=== PATIENT | female | born 1990 | race African-American/Black ===

== ENCOUNTER 2017-06-29 09:09 | Emergency (ER) | payer OTHER ==
[~2017-06-29] VITALS: Ht 167.6 cm; Wt 72.6 kg
[~2017-06-29 09:09] MED LIST: DELTASONE20 MG PO; FLEXERIL PO; IBUPROFEN 600600 M1 PO; MACROBID 100 M100 M1 PO; MOBIC15 MG PO; NORCO 5-325 TA1 EACH PO; PYRIDIUM200 MG PO; ZOFRAN 4 MG ORAL4 MG PO
[2017-06-29 09:10] VITALS: BP 124/86
[2017-06-29] MEDS ORDERED: ZOFRAN ODT4 M1 PO (09:51)
== END 2017-06-29 10:15 | disposition home or self-care (01) ==
LOC: ER 09:09
DX: B34.9 Viral infection, unspecified (principal); N64.4 Mastodynia; F10.99 Alcohol use, unspecified with unspecified alcohol-induced disorder

== ENCOUNTER 2017-09-05 10:25 | Inpatient (IN) | payer OTHER ==
[~2017-09-05] VITALS: Ht 167.6 cm; Wt 76.7 kg
--- NOTE | ~2017-09-05 | O ---
[facility] [place] [address] OPERATIVE REPORT Name: GENA PRICE Room #: 441-P ADM IN M.R.#: [id number] Admission: 09/05/17 Attend Phys: Nahid Davis MD Discharge: Date of : 88 Report #: [id number] THIS REPORT FOR: //name// CC: Nahid Davis [facility] physician/PCP DATE OF SERVICE: 09/06/2017 SURGEON: Justino Burch MD PERSONAL LINES AGENT: None. PREOPERATIVE DIAGNOSIS: Left breast wound with complex fluid collections and mastitis. POSTOPERATIVE DIAGNOSIS: Left breast wound with complex fluid collections and mastitis. PROCEDURES: 1. Excisional debridement of left breast wound, including skin and subcutaneous tissue (starting wound size 2 cm wide x 1 cm long; ending wound size 4 cm wide x 2 cm long). 2. Drainage of complex left breast fluid collections with multiple loculations and copious irrigation. ANESTHESIA: General endotracheal anesthesia and local anesthetic. ESTIMATED BLOOD LOSS: 150 mL SPECIMEN: Left breast skin and subcutaneous tissue. COMPLICATIONS: None appreciated. INDICATIONS FOR PROCEDURE: This is a 27-year-old female patient who has had difficulty with left breast pain, starting at the end of 05/2017. This was initially felt to be cyclical; however, she developed worsened pain with swelling and not responsive to antibiotics. She underwent imaging studies and was initially felt to have mastitis; however, additional studies showed a fluid collection. The patient underwent incision and drainage in a surgeon's office x 2, both of which were unsuccessful. She then presented to [facility] and has been admitted for IV antibiotics and further treatment. Her left breast ultrasound showed 2 complex fluid collections in the left breast. She has a wound overlying this. She presents today for excisional debridement of the wound as well as drainage of the complex fluid collections. OPERATIVE FINDINGS: The patient had multiloculated fluid cavities that [address] [address] OPERATIVE REPORT Name: GENA PRICE Room #: 441-P [facility] IN .R.#: [id number] Admission: 09/05/17 Attend Phys: Nahid Davis MD Discharge: Date of : 89 Report #: [id number] ultimately spanned 7-8 cm long x 5 cm wide x 3-4 cm deep. The fluid within the tissue was non-malodorous and questionably either sterile abscess/pus versus milk. Cultures for aerobes, anaerobes, fungus and acid-fast bacilli were taken as well as tissue to be sent for pathology to rule out idiopathic granulomatous mastitis or malignancy. At the conclusion of the operation, the sponge, needle, and instrument counts were correct. No other significant pathology was identified. DESCRIPTION OF PROCEDURE IN DETAIL: After the risks, benefits, and expectations of the operation were discussed in detail with the patient, informed consent was obtained. The patient was identified in the preoperative holding area. She has been receiving scheduled IV antibiotics including Rocephin and vancomycin. She was then taken to the operating room and she was placed in the supine position. SCDs were placed on the patient's bilateral lower extremities and pneumatic compression was initiated. The patient was then given IV sedation. She was intubated without incident. Her left breast was prepped and draped in the standard sterile fashion with Betadine. A time-out was performed to correctly identify the patient and procedure. Local anesthetic was infiltrated into the skin and subcutaneous tissue around the wound. A sharp #15 blade scalpel was used to make an incision through the skin and subcutaneous tissue to remove this, to be sent for pathology. Bleeding points were made hemostatic with electrocautery and hemostatic sutures of 2-0 Vicryl. Dissection continued deeper into the breast where fluid collections were encountered and were broken up with finger fracture technique. Cultures were taken from the cavity located at the 1 o'clock position as well as from the deeper cavity. Cultures for aerobes, anaerobes, fungus and acid-fast bacilli were ultimately taken. Deeper subcutaneous tissue was also taken as specimen. Bleeding points were made hemostatic with electrocautery. After ensuring hemostasis, the wound was copiously irrigated with 2500 mL of normal saline using the power tube cleaner. The wound was then packed with 1:1 Betadine to normal saline on Kerlix gauze. Sterile dressings were applied. The patient tolerated the procedure well. She was awakened, extubated, and taken to recovery room in stable condition with no apparent intraoperative complications. <ELECTRONICALLY SIGNED> By: Justino Burch MD, FACS 09/07/17 0655 [id number] [id number] Justino Burch MD, FACS /nt
--- NOTE | ~2017-09-05 | HC ---
[facility] [place] [address] CONSULTATION Name: GENA PRICE Room #: 441-P ADM IN M.R.#: [id number] Admission: 09/05/17 Attend Phys: Nahid Davis MD Discharge: Date of : 89 Report #: [id number] THIS REPORT FOR: //name// CC: Nahid Davis [facility] physician/PCP Ora De La Cruz DATE OF SERVICE: 09/05/2017 ATTENDING PHYSICIAN: Dr. Davis. CONSULTING PHYSICIAN: Dr. Burch. REASON FOR CONSULTATION: Left breast mastitis/abscess. HISTORY OF PRESENT ILLNESS: This is a 27-year-old otherwise healthy female patient, who has had difficulty with left breast pains beginning late May 2017. The pain was felt to be cyclical initially. She had increased swelling after Thanksgiving and saw her religious education teacher, Dr. Ora De La Cruz. She was sent for an ultrasound and at that time was diagnosed with mastitis as no fluid collections/abscesses were identified. The patient had continued pain in mid July after having finished her antibiotics. She was sent to diagnostic imaging once again and from there was referred to Dr. Cheo Cadena at [facility]. When seen in his office, the patient underwent an office drainage procedure and was placed on 2 more weeks of antibiotics. She saw him once again in this past Thursday and underwent additional opening of the incision and was placed on an additional week of antibiotics. Since then, she has had worsening pain, fever, chills, and nausea. She has come to the [facility] Emergency Room for further evaluation and treatment. She underwent a left breast ultrasound showing mastitis with 2 ill-defined complex fluid collections in the upper outer aspect of left breast, the larger of which was deep to the incision and second of which was located at the 1 o'clock position in relation to the left nipple. The patient was offered to be transferred/referred to [facility] under the care of Dr. Cadena; however, she declined this and wished to remain at [facility]. PAST MEDICAL HISTORY: Denies. PAST SURGICAL HISTORY: Incision and drainage procedures in the office x 2. MEDICATIONS: Zofran and Bactrim DS. ALLERGIES: No known drug allergies. FAMILY HISTORY: Negative for breast cancer. Reviewed and noncontributory to this hospitalization. [facility] [address] [place] [address] CONSULTATION Name: GENA PRICE Room #: 441-P [facility] IN M.R.#: [id number] Admission: 09/05/17 Attend Phys: Nahid Davis MD Discharge: Date of : 89 Report #: [id number] SOCIAL HISTORY: The patient denies use of tobacco or illicit drugs. 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 She is and accompanied by her . REVIEW OF SYSTEMS: As per history of present illness. In addition, GENERAL: The patient reports fevers and chills. Denies unintentional weight loss. HEENT: Denies changes in taste, vision, hearing, or smell. RESPIRATORY: Denies shortness of breath, COPD or asthma. CARDIOVASCULAR: Denies chest pain or palpitations. GASTROINTESTINAL: As per history of present illness with nausea, but denies abdominal pain. GENITOURINARY: Denies dysuria, urgency, increased urinary frequency or hematuria. MUSCULOSKELETAL: Denies myalgia, arthralgia or arthritis. NEUROLOGIC: Denies headaches, numbness or tingling. PSYCHIATRIC: Denies depression, anxiety or suicidal ideations. SKIN AND INTEGUMENTARY: Denies new skin lesions, rashes, or moles. ENDOCRINE: Denies polydipsia, polyuria, heat or cold intolerance. HEMATOLOGICAL: Denies easy bleeding, bruising or anemia. All other review of systems is negative. PHYSICAL EXAMINATION: VITAL SIGNS: Temperature 100.0, blood pressure 112/71, pulse 105, respirations 20. Height 5 feet 6 inches. Weight 169 pounds. GENERAL: This is a healthy-appearing 27-year-old female patient, in no acute distress. HEENT: Atraumatic, normocephalic with moist mucosal membranes. Oropharynx is clear. She has no scleral icterus. NECK: Supple. No appreciable lymphadenopathy. Trachea is midline. CHEST: Clear bilaterally. No crackles or wheezes. CARDIOVASCULAR: Regular rate and rhythm/mild sinus tachycardia. S1, S2. BREAST: Reveals a firm/indurated left breast with erythema mostly in the upper outer quadrant of the left breast. She is exquisitely tender to palpation. A transverse radial incision is present lateral to the left nipple with seropurulent drainage. She has no appreciable lymphadenopathy. There is no nipple discharge. The right breast is normal. ABDOMEN: Soft, nontender, nondistended. GENITOURINARY: Normal external female genitalia. EXTREMITIES: No clubbing, cyanosis or edema. NEUROLOGIC: Cranial nerves 2-12 grossly intact. PSYCHIATRIC: Normal mood and affect although the patient is tearful. SKIN AND INTEGUMENTARY: See above. [address] [address] CONSULTATION Name: GEAN PRICE Room #: 441-P ADM IN M.R.#: [id number] Admission: 09/05/17 Attend Phys: Nahid Davis MD Discharge: Date of : 89 Report #: [id number] LABORATORY DATA: CBC shows a white blood cell count of 20.7, hemoglobin 12.0, hematocrit 34.4 and platelets 233 with 87% segmented neutrophils. Comprehensive metabolic profile shows a sodium of 136, potassium 3.4, chloride 99, CO2 24, BUN 6, creatinine 0.8 and glucose 102. AST and ALT were elevated at 170 and 354 respectively with an elevated alkaline phosphatase of 219. Total bilirubin was normal at 0.6. Lactate was normal at 0.6. RADIOLOGIC STUDIES: Left breast ultrasound, findings as noted above. Diffuse subcutaneous edema was present in the upper outer aspect of the left breast, consistent with mastitis. Both fluid collections were poorly defined and felt to be complex. IMPRESSION AND PLAN: This is a 27-year-old otherwise healthy female patient with mastitis with complex fluid collections. We discussed the pathophysiology and natural history of this. She has not been nursing. She would benefit from incision and drainage with debridement as a wound is present. This would be excisionally debrided. We discussed the risks, benefits and expectations of the operation in detail. The patient expressed understanding and wishes to proceed. She will be taken to operating room at the next earliest availability. In the meantime, would continue IV antibiotics and consider an infectious disease consult for further antibiotic recommendations/management. Wound care will also be consulted after the procedure to assist with dressing changes. I sincerely appreciate the opportunity to participate in the care of this patient and will leave further recommendations and orders in the electronic medical record as appropriate. <ELECTRONICALLY SIGNED> By: Justino Burch MD, FACS 09/06/17 [phone] Justino Burch MD, FACS /nt
--- NOTE | ~2017-09-05 | H ---
[facility] [place] [address] HISTORY AND PHYSICAL Name: GENA PRICE Room #: 441-P ADM IN M.R.#: [id number] Admission: 09/05/17 Attend Phys: Nahid Davis MD Discharge: Date of : 89 Report #: [id number] THIS REPORT FOR: //name// CC: Nahid Davis [facility] physician/PCP DATE OF SERVICE: 09/05/2017 REASON FOR THE PRESENTATION: Left breast pain and fever. HISTORY OF PRESENT ILLNESS: This is a 27-year-old who presented complaining of left-sided breast pain that had been going on for the last month or so. She initially had this drained by a surgeon at [facility] back on 08/14; however, the incision was small and this has to be redone again on 09/02. She tells me that she had received numerous antibiotics including Bactrim, Augmentin. She had some images done at the diagnostic center, but those are not available for me. She reported fever high grade, chills. This was also associated with generalized bodyaches. She denies any previous problems like abscesses. No previous mastitis. She is not nursing. She is not diabetic or hypertensive. She is not immune compromised. REVIEW OF SYSTEMS: GENERAL: Significant for fever, chills, weakness. CARDIOVASCULAR: Significant for some shortness of breath. PULMONARY: No cough or hemoptysis. GASTROINTESTINAL: Nausea and decreased p.o. intake. GENITOURINARY: No frequency, no urgency. SKIN: As per the history of present illness. MEDICATIONS: Bactrim. ALLERGIES: None. SOCIAL HISTORY: She denies drug or alcohol abuse. 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 FAMILY HISTORY: Significant for diabetes mellitus. Her dad is diabetic. Her mom has hypertension. PHYSICAL EXAMINATION: GENERAL: She is alert, oriented. She seems to be distressed. VITAL SIGNS: Blood pressure was 115/74, temperature 38.2, pulse rate 104. HEAD AND NECK: No jugular venous distention, no bruit, no thyromegaly. CHEST: Clear to auscultation bilaterally. CARDIOVASCULAR: Regular with no rub detected. [facility] [address] [address] HISTORY AND PHYSICAL Name: GENA PRICE Room #: 441-P [facility] IN [facility]#: [id number] Admission: 09/05/17 Attend Phys: Nahid Davis MD Discharge: Date of : 89 Report #: [id number] ABDOMEN: Soft, nontender with no hepatosplenomegaly. LOWER EXTREMITIES: No edema with intact peripheral pulses. BREAST: Revealed fullness in the whole left breast area. There is an incision in the left inferolateral aspect of the nipple. The whole breast is inflamed, indurated, warmed. LABORATORY DATA: Laboratory values reviewed. She is a little hypokalemia with a potassium 3.4. AST, ALT, alkaline phosphatase are elevated. White blood cell count 20.7. Urine not received yet. Blood cultures are sent and pending. Wound swab was also sent. ASSESSMENT, IMPRESSION AND PLAN: 1. Mastitis with what seems to be a fluid collection. 2. Sepsis syndrome with high white blood cell count, elevated temperature. 3. Hypokalemia. 4. Elevated liver enzymes of unknown source. 5. Discussed with the patient and her . They do not want to go back to [facility]. 6. Admission. 7. IV fluid. 8. Cultures. 9. Start appropriate antibiotic including vancomycin and Rocephin. 10. Surgical consultation. 11. Obtain CPK given the extent of the breast tissue inflammation. 12. Hold Bactrim for now given the elevation of the liver enzymes and repeat liver enzymes in the morning. If needed, I will proceed with ultrasound, Hepatology consultation. <ELECTRONICALLY SIGNED> By: Nahid Davis MD 09/07/17 0850 1220 Nahid Davis MD /nt
--- NOTE | ~2017-09-05 | HC ---
[facility] [place] [address] CONSULTATION Name: GENA PRICE Room #: 441-P ADM IN M.R.#: [id number] Admission: 09/05/17 Attend Phys: Nahid Davis MD Discharge: Date of : 89 Report #: [id number] THIS REPORT FOR: //name// CC: Nahid Davis [facility] physician/PCP DATE OF SERVICE: 09/06/2017 WOUND CARE CONSULTATION NOTE REASON FOR CONSULTATION: Status post incision and drainage of multi-loculated left breast abscess by Dr. Burch, wound care for postoperative care of surgical wound. CONSULTING PHYSICIAN: Moise Narvaez MD HISTORY: The patient is a healthy, non-diabetic, 27-year-old woman who has had children nurse, but has not been lactating over 2 years. The patient developed some pain, tenderness and swelling of her left breast sometime in late May around . This has not resolved and she was seen by Dr. Cheo Cadena at [facility] who is a breast surgeon. The patient saw Dr. Ora De La Cruz, also had ultrasound done with finding of mastitis without fluid collection. The patient was begun on antibiotics. After antibiotics failed to take care of the problem, patient saw Dr. Cheo Cadena who performed an office incision and drainage on approximately 08/14 and then again on Thursday 4 days ago. Despite several course of antibiotics and office incision and drainage x 2, patient continued to have pain, tenderness and swelling of the left breast, presented herself to the Emergency Room at [facility] where her temperature was 100 and white blood count was 20.7. The patient was seen in consultation by Dr. Justino Burch and taken to the operating room today, 09/06, where she had wide incision and drainage of loculated left breast fluid collection with some excisional debridement. Wound was widely opened, all loculations were broken down and the wound was drained and packed. The patient continues on IV antibiotics. We will not do dressing change today. PAST MEDICAL HISTORY: The patient is non-diabetic. She has no medical illnesses. PAST SURGICAL HISTORY: No major surgeries. CURRENT MEDICATIONS: Zofran and Bactrim. ALLERGIES: No known drug allergies. FAMILY HISTORY: Negative for breast cancer. [address] [address] CONSULTATION Name: GENA PRICE Room #: 441-P [facility] IN M.R.#: [id number] Admission: 09/05/17 Attend Phys: Nahid Davis MD Discharge: Date of : 89 Report #: [id number] PHYSICAL EXAMINATION: GENERAL: Shows a well-appearing 27-year-old woman who is alert and conversant. VITAL SIGNS: She is afebrile. HEENT: Mucous membranes are moist. NECK: Supple. LUNGS: Respirations unlabored. ABDOMEN: Soft. EXTREMITIES: Normal. BREASTS: Examination of the left breast shows a large clean dressing on lateral aspect of the mid left breast. Dressing is clean and not saturated. Dressing is not removed today. LABORATORIES: White blood count yesterday was 20.7, today 18.1. IMPRESSION: Chronic left breast mastitis with chronic mastitis and loculated fluid collections, requiring operative incision and drainage. This is postoperative day #0. PLAN: We will continue IV antibiotics. Wound care team will change wound packing tomorrow and change the packing accordingly, perhaps with quarter strength Dakin's. The patient may follow up in [facility] with Dr. Marcin garay. Final OR culture is pending. The patient will be discharged home on appropriate antibiotics. <ELECTRONICALLY SIGNED> By: Moise Narvaez MD 09/13/17 0916 1403 [id number] Moise Narvaez MD /nt
--- NOTE | ~2017-09-05 | HC ---
[facility] [place] [address] CONSULTATION Name: GENA PRICE Room #: 441-P ADM IN M.R.#: [id number] Admission: 09/05/17 Attend Phys: Nahid Davis MD Discharge: Date of : 88 Report #: [id number] THIS REPORT FOR: //name// CC: Nahid Davis [facility] physician/PCP DATE OF SERVICE: 09/05/2017 CONSULTATION: Infectious diseases. HISTORY OF PRESENT ILLNESS: The patient is a 27-year-old female who comes to the hospital because of pain in her left breast. The patient says she first noted discomfort in the left breast around the end of May last year. This was a dull ache on the lateral aspect of the left breast. It was not associated with . It was not associated with any trauma. The discomfort became worse and then around , the pain was quite significant. She came to medical attention, the Thursday after and was given antibiotics with Bactrim. She was not sure if she got a lot of benefit, so this was then repeated with an anti-inflammatory drug. The patient had an abscess diagnosed and was drained by Dr. Cadena at [facility] on 08/14/2017. The patient said that she had a small incision with a 1/4-inch packing gauze. She returned to Dr. Cadena 2 weeks later on 09/02/2017 complaining of more pain. She had been on Augmentin. Dr. Cadena extended the incision in the office procedure room using just a local anesthetic and then packed a 4 x 4 gauze into the wound. The patient found this procedure quite excruciating and decided that she did not want to return to that physician. The packing came out. The patient was having more pain in her breast and so presents on 09/05/2017 to the Emergency Room at [facility] 3 days after her last the incision and drainage procedure. PAST MEDICAL HISTORY: Otherwise unremarkable. The patient is generally in excellent health without any medical problems. She does not take any medication on a regular basis up until the recent antibiotic treatments. She denies any systemic illness. No problems with heart, lungs, kidneys and bowels. FAMILY HISTORY: Noncontributory. SOCIAL HISTORY: The patient is . She has a 4-year-old and a 2-year-old at home. She breastfed the last child until he was 8 months old. 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 She does not use tobacco, alcohol or drugs. She denies any HIV risk factors. REVIEW OF SYSTEMS: The patient is complaining of some fevers and chills. She denies any head or neck complaints. She has severe pain in the breast. She has no discharge nor milk let down. She has no symptoms in the right breast. She denies any angina or syncope, but the pain in the breast radiates into her left [address] [address] CONSULTATION Name: GENA PRICE Room #: 441-P ADM IN M.R.#: [id number] Admission: 09/05/17 Attend Phys: Nahid Davis MD Discharge: Date of : 88 Report #: [id number] ribs. She denies any nausea, vomiting, diarrhea, constipation. She denies any urinary or genital complaints. She has some discomfort in the left shoulder, but no other pain in the extremities. PHYSICAL EXAMINATION: GENERAL: The patient appears her stated age, uncomfortable, but not in distress. She notes that the Dilaudid is very helpful for the pain, but when it wears out, the patient again becomes excruciating. I request that I told the nurse that it is about time for her next dose of narcotic. VITAL SIGNS: Show maximum temperature 100.7. ENT: Negative. The patient is alert and appropriate. There is no adenopathy in the axilla nor supraclavicular area. HEART, LUNGS, AND ABDOMEN: Unremarkable. The left breast is clearly swollen compared to the right breast. There is a very prominent vein going from about the 11 o'clock position going for about 3 cm. It is visible on the left breast. There are no visible veins on the right. There is an open wound at the 4 o'clock position relative to the nipple about 5 cm from the nipple. This has a length of about 1 cm, a width of about 3 cm, depth of 0.2 cm. The patient says the packing came out a day or so ago. The abdomen is unremarkable. LABORATORY DATA: White count is 20.7, hemoglobin 12, hematocrit 34%. Electrolytes, BUN and creatinine are normal. Liver function tests are elevated with AST 170, ALT at 354 and alkaline phosphatase of 219. Her lactate is normal. The ultrasound of the left breast shows diffuse edema consistent with mastitis. There were 2 phlegmonous areas which were not characterized as true abscess, one was deep to the incision that were there at the 4 o'clock position and there is another area about at the 1 o'clock position. They looked like local inflammations without yet liquefying. In summary, the patient with a breast cellulitis and abscess, which has not improved in spite of the 3 weeks of oral antibiotics and 2 attempts at incision and drainage. Breast abscess in a non-lactating female is well described. Lesions which are far from the nipple act much like normal skin abscesses with staph and strep. Nipple involvement increases the chance of corynebacterium and gram-negative organisms. There are also some conditions, which look like infection, but are not; what comes to mind is idiopathic granulomatous mastitis, which can look very inflamed like an infection, but has a different appearance on histopathology and is generally culture negative. At this time, I discussed with Dr. Burch. I will continue the antibiotics with vancomycin plus Rocephin. We can do a nasal swab for methicillin-resistant Staphylococcus aureus. Dr. Burch plans on taking the patient to the operating room on 09/06/2017 to drain the inflammatory areas. I discussed with him that we would want to obtain cultures for routine as well as [address] [address] CONSULTATION Name: GENA PRICE Room #: 441-P [facility] IN M.R.#: [id number] Admission: 09/05/17 Attend Phys: Nahid Davis MD Discharge: Date of : 88 Report #: [id number] TB and fungus organisms, as well as obtain a tissue for histology looking for idiopathic granulomatous mastitis. I appreciate the opportunity to offer input in the care of this pleasant patient. I will be happy to follow her through the weekend until Dr. Prescott returns on Thursday. Thank you for this consultation. <ELECTRONICALLY SIGNED> By: Cheo Mei MD 09/07/17 0032 0806 1230 Cheo Mei MD /ammon
--- NOTE | ~2017-09-05 | O ---
[facility] [place] [address] [place] [address] OPERATIVE REPORT Name: GENA PRICE Room #: 441-P ADM IN M.R.#: [id number] Admission: 09/05/17 Attend Phys: Nahid Davis MD Discharge: Date of : 88 Report #: [id number] THIS REPORT FOR: //name// CC: Nahid Davis [facility] physician/PCP Ora De La Cruz MD DATE OF SERVICE: 09/11/2017 SURGEON: Justino Burch MD [employer] PA[employer] MIXER OPERATOR: None. PREOPERATIVE DIAGNOSES: 1. Left breast wound with mastitis and persistent leukocytosis. 2. Status post recent excisional debridement on 09/06/2017, after bedside incision and drainage procedures times 2. POSTOPERATIVE DIAGNOSES: 1. Left breast wound with mastitis and persistent leukocytosis, now with purulence. 2. Status post recent excisional debridement on 09/06/2017, after bedside incision and drainage procedures times 2. PROCEDURES: 1. Mechanical debridement of left breast wound. 2. Drainage of complex left breast fluid collections with multiple loculations in the tail of the breast. ANESTHESIA: General endotracheal anesthesia and local anesthetic. ESTIMATED BLOOD LOSS: 10 mL. SPECIMEN: None. COMPLICATIONS: None appreciated. INDICATIONS FOR PROCEDURE: This is a 27-year-old female patient who presented to [facility] with left breast pain, which started in late May 2017. Her symptoms were felt to be cyclical as she developed worsened pain at the end of July. She underwent imaging studies initially showing mastitis and she did not respond to antibiotics. Additional studies showed a fluid collection. The patient then underwent incision and drainage at the bedside twice, both of which were unsuccessful. She presented to [facility] and was admitted for IV antibiotics. Her left breast ultrasound revealed 2 complex fluid collections in the left breast with her wound overlying [facility] [address] [place] [address] OPERATIVE REPORT Name: GENA PRICE Room #: 441-P [facility] IN M.R.#: [id number] Admission: 09/05/17 Attend Phys: Nahid Davis MD Discharge: Date of : 88 Report #: [id number] this. She underwent excisional debridement with drainage of the complex fluid collections on 09/06/2017. Multiloculated fluid collections were identified and cultures as well as tissue were taken. Cultures have come back negative thus far. Pathology showed no malignancy. The patient has been undergoing dressing changes and receiving IV antibiotics; however, she has had a persistently elevated white blood cell count with firmness in the tail of the left breast. She underwent an ultrasound on 09/10/2017, showing a worsening inflammatory phlegmon versus enlarging abscess in the upper outer left breast. She presents today for repeat wound debridement. OPERATIVE FINDINGS: The area of purulence had been opened on 09/07/2017, and packing was not present within this. Purulent fluid was sent for cultures. There was good granulation tissue throughout the wound otherwise with minimal fibrinous exudate. The abscess did not appear to have spread, but was in an area that had already been opened. The dressing changes after the initial OR dressing was placed did not extend into the cavity. The cavity measured 8 cm long by 7 cm wide by 6-7 cm deep. The skin opening was 5 cm wide x 2 cm long. DESCRIPTION OF PROCEDURE IN DETAIL: After risks, benefits, and expectations of the operation were discussed in detail with the patient, informed consent was obtained. The patient was identified in the preoperative holding area. She has been receiving scheduled IV antibiotics. She was taken to the operating room and she was placed in the supine position. SCDs were placed on the patient's bilateral lower extremities and pneumatic compression was initiated. The patient was then given IV sedation, she was intubated without incident. Her left breast was prepped and draped in the standard sterile fashion. A time-out was performed to identify the correct patient and procedure. The packing had been removed prior to prepping the patient's breast. Blunt dissection was used to enter the abscess cavity where purulence was identified. Cultures were taken to be sent for aerobes, anaerobes, fungus, and acid-fast bacilli. The wound was then copiously irrigated and mechanical debridement with a lap tape was performed. There was a gentle ooze of blood from the tissue with no overt bleeding/arterial or venous bleeding. The wound was packed with 1:1 Betadine to normal saline on a Kerlix gauze. Care was taken to ensure that the packing extended up into the cavity, which extended 8 cm long x 6-7 cm deep x 7 cm wide. The skin opening was approximately 5 cm wide. Sterile dressings were applied. The patient tolerated the procedure well. She was awakened, extubated, and taken to recovery room in stable condition with no apparent intraoperative complications. <ELECTRONICALLY SIGNED> By: Justino Burch MD, FACS 09/11/17 2214 0929 1006 Justino Burch MD, FACS /nt
--- NOTE | ~2017-09-05 | S ---
[facility] [place] [address] [place] [address] SURGICAL PATH RPT PROCEDURE Name: ADA WALKER Room #: 441-P ADM IN M.R.#: [id number] Admission: 09/05/17 Date of : 88 Discharge: Report #: [id number] Path Case #: [id number] PATHOLOGY REPORT COLLECTION DATE: 09/06/2017 RECEIVED DATE: 09/07/2017 SUBMITTING PHYS: Dr. Justino Burch OTHER PHYS: Dr. Nahid Gong-Abs SPECIMEN(S) RECEIVED: A.Left breast skin B.Subcutaneous tissue-left breast * * * * * * * * * * * * FINAL DIAGNOSIS: A. Skin, left breast skin, biopsy: - Marked acute inflammation, compatible with an abscess identified in deep subcutaneous tissue. - Overlying squamous epithelium showing reactive changes. - Negative for dysplasia or malignancy. - No breast tissue present. B. Breast, left breast subcutaneous tissue, debridement: - Fragments with marked acute inflammation consistent with an abscess. - Fat necrosis identified within subcutaneous adipose tissue. - Negative for malignancy. - Rare breast ducts with moderate chronic inflammation; negative for hyperplasia or malignancy. (IUV:mml; 09/08/2017) PATHOLOGIST: Tana Kuo M.D. REPORT ELECTRONICALLY SIGNED BY: Tana Kuo M.D. DATE/TIME: 09/08/2017 17:20 * * * * * * * * * * * * GROSS PATHOLOGY: A. Received in formalin labeled "Ada Walker, skin and additionally labeled left breast skin on requisition slip" and consists of a segment of mcdonough skin measuring 3.2 cm in length, 0.6 cm wide, 0.3 cm thick. No epidermal lesions are identified. The margin is inked black. Sign Writer Letterer Or Painter sections are submitted as A1. B. Received in formalin labeled "Ada Walker, subcutaneous tissue and additionally labeled "subcutaneous tissue per requisition slip" and consists of 2 resilient, firm, yellow orange, and hemorrhagic fragments of fibroadipose tissue measuring 1.2 x 1.0 x 0.7 cm and 2.2 x 1.1 x 1.0 cm. Sectioning each reveals variegated red, jimenez, and yellow cut surfaces. Sign Writer Letterer Or Painter sections are [place] [address] [place] [address] SURGICAL PATH RPT PROCEDURE Name: ADA WALKER Room #: [facility]-P ADM IN M.R.#: [id number] Admission: 09/05/17 Date of : 88 Discharge: Report #: [id number] Path Case #: [id number] submitted as B1. (ALEXANDRA; 09/07/2017) CLINICAL HISTORY: Infected left breast INITIAL CPT CODE(S): A; 25516 B; 88017 Professional services performed by [facility] at [facility] [address] [place] [address] Technical services performed by [facility] at [address] [place] [address]., [address], [place] [address]. [facility] [address] [address] PHONE: [phone] DIRECTOR: Jerman Quinonez M.D. * * * END OF REPORT * * *
[~2017-09-05 10:25] MED LIST changes: +ZOFRAN ODT4 M1 PO
[2017-09-05 10:32] VITALS: BP 115/74
[2017-09-05] MEDS ORDERED: BACTRIM DS TAB1 EACH PO (10:39)
[2017-09-05 10:56] LABS: HEMATOCRIT 34.4 % (37.0-47.0); MCH 31.7 pg (26.0-34.0); MCHC 34.9 g/dL (28.0-37.0); MCV 90.8 fL (80.0-100.0); PLATELET COUNT 233 thou/uL (150-400); RBC 3.79 mil/uL (4.20-5.00); RDW 12.8 % (10.5-14.5); WBC 20.7 thou/uL (4.0-11.0)
[2017-09-05 11:15] LABS: CREATININE 0.8 mg/dL (0.6-1.0); POTASSIUM 3.4 mmol/L (3.5-5.1)
[2017-09-05 11:20] LABS: ALBUMIN 3.3 g/dL (3.4-5.0); TOTAL BILIRUBIN 0.6 mg/dL (<0.1-1.0); TOTAL PROTEIN 7.9 g/dL (6.4-8.2)
[2017-09-05 11:36] LABS: ANISOCYTOSIS 1+
[2017-09-05 11:37] LABS: POLYCHROMASIA OCCASIONAL
[2017-09-05 12:21] VITALS: BP 115/74
[2017-09-05 12:51] VITALS: BP 112/71
[2017-09-05 13:12] VITALS: BP 137/90
[2017-09-05 19:30] VITALS: BP 134/86
[2017-09-06 03:30] VITALS: BP 109/69
[2017-09-06 06:19] LABS: HEMATOCRIT 32.1 % (37.0-47.0); HEMOGLOBIN 10.9 gm/dL (12.0-15.0); MCH 31.3 pg (26.0-34.0); RBC 3.49 mil/uL (4.20-5.00); RDW 12.6 % (10.5-14.5); WBC 18.1 thou/uL (4.0-11.0)
[2017-09-06 06:24] LABS: CALCIUM 8.3 mg/dL (8.5-10.1); CREATININE 0.7 mg/dL (0.6-1.0); POTASSIUM 3.9 mmol/L (3.5-5.1)
[2017-09-06 06:30] LABS: ALBUMIN 2.6 g/dL (3.4-5.0); TOTAL BILIRUBIN 0.8 mg/dL (<0.1-1.0); TOTAL PROTEIN 6.5 g/dL (6.4-8.2)
[2017-09-06 11:30] VITALS: BP 128/83
[2017-09-06 13:00] VITALS: BP 126/82
[2017-09-06 13:15] VITALS: BP 124/80
[2017-09-06 16:05] VITALS: BP 122/73
[2017-09-06 20:36] VITALS: BP 123/70
[2017-09-07 04:52] VITALS: BP 117/75
[2017-09-07 05:59] LABS: ABSOLUTE NEUTROPHILS 13.2 thou/uL (1.4-8.2); BASOPHILS 1.5 % (0.0-2.0); EOSINOPHILS 0.5 % (0.0-3.0); HEMATOCRIT 30.6 % (37.0-47.0); HEMOGLOBIN 10.2 gm/dL (12.0-15.0); LYMPHOCYTES 11.1 % (24.0-44.0); MCH 30.8 pg (26.0-34.0); MCHC 33.4 g/dL (28.0-37.0); MCV 92.4 fL (80.0-100.0); MONOCYTES 7.2 % (1.0-8.0); PLATELET COUNT 224 thou/uL (150-400); POLYS 79.7 % (36.0-66.0); RBC 3.31 mil/uL (4.20-5.00); RDW 12.8 % (10.5-14.5); WBC 16.6 thou/uL (4.0-11.0)
[2017-09-07 06:24] LABS: ALBUMIN 2.4 g/dL (3.4-5.0); CALCIUM 8.3 mg/dL (8.5-10.1); CREATININE 0.6 mg/dL (0.6-1.0); POTASSIUM 3.9 mmol/L (3.5-5.1); TOTAL BILIRUBIN 0.4 mg/dL (<0.1-1.0); TOTAL PROTEIN 6.3 g/dL (6.4-8.2)
[2017-09-07 08:07] VITALS: BP 117/69
[2017-09-07 11:58] LABS: URINE BILIRUBIN NEGATIVE (Negative); URINE BLOOD NEGATIVE (Negative); URINE CLARITY CLEAR; URINE COLOR YELLOW; URINE GLUCOSE-RANDOM* NEGATIVE (Negative); URINE KETONES TRACE (Negative); URINE LEUKOCYTES NEGATIVE (Negative); URINE NITRITE NEGATIVE (Negative); URINE PROTEIN (DIPSTICK) NEGATIVE (Negative); URINE SPECIFIC GRAVITY 1.015 (1.005-1.035)
[2017-09-07 16:09] VITALS: BP 113/74
[2017-09-07 20:22] VITALS: BP 130/84
[2017-09-08 03:29] VITALS: BP 120/75
[2017-09-08 08:00] VITALS: BP 118/81
[2017-09-08 08:39] LABS: ABSOLUTE NEUTROPHILS 9.8 thou/uL (1.4-8.2); BASOPHILS 0.3 % (0.0-2.0); EOSINOPHILS 4.4 % (0.0-3.0); HEMATOCRIT 32.6 % (37.0-47.0); HEMOGLOBIN 10.7 gm/dL (12.0-15.0); LYMPHOCYTES 13.7 % (24.0-44.0); MCH 30.6 pg (26.0-34.0); MCHC 32.9 g/dL (28.0-37.0); MCV 93.2 fL (80.0-100.0); PLATELET COUNT 236 thou/uL (150-400); POLYS 74.6 % (36.0-66.0); WBC 13.1 thou/uL (4.0-11.0)
[2017-09-08 08:48] LABS: CALCIUM 8.7 mg/dL (8.5-10.1); CREATININE 0.7 mg/dL (0.6-1.0); POTASSIUM 3.6 mmol/L (3.5-5.1)
[2017-09-08 15:57] VITALS: BP 121/56
[2017-09-08 20:48] VITALS: BP 120/79
[2017-09-09 04:38] VITALS: BP 122/76
[2017-09-09 05:29] LABS: ABSOLUTE NEUTROPHILS 9.7 thou/uL (1.4-8.2); BASOPHILS 0.4 % (0.0-2.0); EOSINOPHILS 5.2 % (0.0-3.0); HEMATOCRIT 30.7 % (37.0-47.0); HEMOGLOBIN 10.3 gm/dL (12.0-15.0); LYMPHOCYTES 17.4 % (24.0-44.0); MCH 30.6 pg (26.0-34.0); MCHC 33.5 g/dL (28.0-37.0); MCV 91.4 fL (80.0-100.0); MONOCYTES 7.9 % (1.0-8.0); PLATELET COUNT 251 thou/uL (150-400); POLYS 69.1 % (36.0-66.0); RBC 3.36 mil/uL (4.20-5.00); RDW 12.7 % (10.5-14.5); WBC 14.1 thou/uL (4.0-11.0)
[2017-09-09 05:51] LABS: ALBUMIN 2.3 g/dL (3.4-5.0); CALCIUM 8.2 mg/dL (8.5-10.1); CREATININE 0.6 mg/dL (0.6-1.0); POTASSIUM 3.8 mmol/L (3.5-5.1); TOTAL BILIRUBIN 0.3 mg/dL (<0.1-1.0)
[2017-09-09 08:00] VITALS: BP 154/98
[2017-09-09 16:00] VITALS: BP 143/96
[2017-09-09 19:26] VITALS: BP 133/86
[2017-09-10 04:53] VITALS: BP 118/78
[2017-09-10 06:48] LABS: ABSOLUTE NEUTROPHILS 10.4 thou/uL (1.4-8.2); BASOPHILS 0.6 % (0.0-2.0); EOSINOPHILS 4.4 % (0.0-3.0); HEMATOCRIT 30.8 % (37.0-47.0); HEMOGLOBIN 10.3 gm/dL (12.0-15.0); LYMPHOCYTES 14.7 % (24.0-44.0); MCH 30.8 pg (26.0-34.0); MCHC 33.5 g/dL (28.0-37.0); MCV 92.1 fL (80.0-100.0); MONOCYTES 7.2 % (1.0-8.0); PLATELET COUNT 278 thou/uL (150-400); POLYS 73.1 % (36.0-66.0); RBC 3.35 mil/uL (4.20-5.00); RDW 12.8 % (10.5-14.5); WBC 14.3 thou/uL (4.0-11.0)
[2017-09-10 06:59] LABS: CALCIUM 8.1 mg/dL (8.5-10.1); CREATININE 0.6 mg/dL (0.6-1.0)
[2017-09-10 07:10] VITALS: BP 136/88
[2017-09-10 15:20] VITALS: BP 116/85
[2017-09-10 19:32] VITALS: BP 118/80
[2017-09-11 03:15] LABS: HIV ANTIBODY Non Reactive (Non Reactive)
[2017-09-11 03:29] VITALS: BP 102/62
[2017-09-11 09:55] VITALS: BP 111/69
[2017-09-11 15:56] VITALS: BP 110/64
[2017-09-11 16:10] LABS: HAV IgM AB (ANTI-HAV IgM) Negative (Negative); HEP B SURFACE Ab(ANTI-HBS Reactive (()); HEPATITIS C VIRUS AB <0.1 (0.0-0.9)
[2017-09-11 19:23] VITALS: BP 109/60
[2017-09-12 01:10] LABS: ANTI-VCA/IgG >600.0 U/mL (0.0-17.9); ANTI-VCA/IgM <36.0 U/mL (0.0-35.9); EBV EARLY ANTIGEN <9.0 U/mL (0.0-8.9)
[2017-09-12 03:39] LABS: HEMOGLOBIN 9.8 gm/dL (12.0-15.0); MCH 31.3 pg (26.0-34.0); MCHC 33.9 g/dL (28.0-37.0); MCV 92.2 fL (80.0-100.0); RBC 3.15 mil/uL (4.20-5.00); RDW 12.8 % (10.5-14.5)
[2017-09-12 03:57] LABS: ALBUMIN 2.5 g/dL (3.4-5.0); CALCIUM 7.9 mg/dL (8.5-10.1); CREATININE 0.7 mg/dL (0.6-1.0); POTASSIUM 3.9 mmol/L (3.5-5.1); TOTAL BILIRUBIN 0.2 mg/dL (<0.1-1.0); TOTAL PROTEIN 6.2 g/dL (6.4-8.2)
[2017-09-12 06:40] LABS: PLATELET COUNT 308 thou/uL (150-400)
[2017-09-12 06:42] LABS: ABSOLUTE NEUTROPHILS 11.6 thou/uL (1.4-8.2); LARGE PLATELETS OCCASIONAL
[2017-09-12 07:58] VITALS: BP 126/68
[2017-09-12 16:06] VITALS: BP 127/83
[2017-09-12 19:03] VITALS: BP 118/67
[2017-09-13 04:52] LABS: ABSOLUTE NEUTROPHILS 8.1 thou/uL (1.4-8.2); BASOPHILS 0.9 % (0.0-2.0); EOSINOPHILS 3.7 % (0.0-3.0); HEMOGLOBIN 10.3 gm/dL (12.0-15.0); MCH 30.5 pg (26.0-34.0); MCHC 33.1 g/dL (28.0-37.0); MCV 92.1 fL (80.0-100.0); MONOCYTES 7.1 % (1.0-8.0); PLATELET COUNT 289 thou/uL (150-400); POLYS 65.3 % (36.0-66.0); RBC 3.36 mil/uL (4.20-5.00); WBC 12.4 thou/uL (4.0-11.0)
[2017-09-13 05:05] VITALS: BP 116/68
[2017-09-13 05:16] LABS: ALBUMIN 2.5 g/dL (3.4-5.0); CALCIUM 7.9 mg/dL (8.5-10.1); CREATININE 0.7 mg/dL (0.6-1.0); POTASSIUM 3.9 mmol/L (3.5-5.1); TOTAL BILIRUBIN 0.1 mg/dL (<0.1-1.0); TOTAL PROTEIN 5.9 g/dL (6.4-8.2)
[2017-09-13 08:23] VITALS: BP 113/68
[2017-09-13] MEDS ORDERED: FLAGYL500 MG PO (13:43)
[2017-09-13] MEDS ORDERED: CEFDINIR300 MG PO (13:43)
[2017-09-13 16:11] VITALS: BP 132/75
[2017-09-13 19:43] VITALS: BP 125/85
[2017-09-14 04:03] VITALS: BP 121/69; BP 150/82
[2017-09-14 05:00] LABS: CALCIUM 7.9 mg/dL (8.5-10.1); CREATININE 0.6 mg/dL (0.6-1.0); POTASSIUM 4.1 mmol/L (3.5-5.1)
[2017-09-14 07:20] VITALS: BP 129/74
[2017-09-14 08:28] LABS: HEMATOCRIT 31.2 % (37.0-47.0); HEMOGLOBIN 10.4 gm/dL (12.0-15.0); MCH 31.4 pg (26.0-34.0); MCHC 33.5 g/dL (28.0-37.0); MCV 93.8 fL (80.0-100.0); PLATELET COUNT 320 thou/uL (150-400); RBC 3.33 mil/uL (4.20-5.00); RDW 13.2 % (10.5-14.5); WBC 11.6 thou/uL (4.0-11.0)
[2017-09-14] MEDS ORDERED: ZOFRAN ODT4 MG DISSOLVE (08:29)
[2017-09-14] MEDS ORDERED: FLAGYL500 MG PO (08:29)
[2017-09-14] MEDS ORDERED: CEFDINIR300 MG PO (08:29)
[2017-09-14] MEDS ORDERED: PERCOCET 7.5-31 EACH PO (08:29)
[2017-09-14 10:06] LABS: ABSOLUTE NEUTROPHILS 7.7 thou/uL (1.4-8.2); ATYPICAL LYMPHS 1 %; METAMYELOCYTES 2 %
[2017-09-14 10:07] LABS: ANISOCYTOSIS SLIGHT
[2017-09-14 14:51] VITALS: BP 129/74
== END 2017-09-14 16:18 | disposition home health service (06) | DRG 853 ==
LOC: ER 10:25 → 4S 12:04 → EROBS 12:04 → 4S 13:07
PROVIDERS: Family Medicine; Hospitalist; Physician Assistant; Specialist; Surgery
PROC: 0JB60ZZ Excision of Chest Subcutaneous Tissue and Fascia, Open Approach (ICD-10-PCS; principal; 2017-09-06)
PROC: 0HBUXZZ (ICD-10-PCS; 2017-09-11)
DX: A41.9 Sepsis, unspecified organism (principal); E43 Unspecified severe protein-calorie malnutrition; N61.0 Mastitis without abscess; N61.1 Abscess of the breast and nipple; E87.6 Hypokalemia; K75.9 Inflammatory liver disease, unspecified; G47.00 Insomnia, unspecified; Z83.3 Family history of diabetes mellitus; Z82.49 Family history of ischemic heart disease and other diseases of the circulatory system
CPT/HCPCS: 10195; 50010; 50101; 50386; 50403; 53078; 56526; 62110; 62900; 70005

== ENCOUNTER 2017-09-17 16:05 | Emergency (ER) | payer OTHER ==
[~2017-09-17] VITALS: Ht 167.6 cm; Wt 72.6 kg
[~2017-09-17 16:05] MED LIST changes: +BACTRIM DS TAB1 EACH PO; +CEFDINIR300 MG PO; +FLAGYL500 MG PO; +PERCOCET 7.5-31 EACH PO; +ZOFRAN ODT4 MG DISSOLVE
[2017-09-17 17:23] LABS: ABSOLUTE NEUTROPHILS 12.7 thou/uL (1.4-8.2); BASOPHILS 0.4 % (0.0-2.0); EOSINOPHILS 2.6 % (0.0-3.0); HEMATOCRIT 36.9 % (37.0-47.0); HEMOGLOBIN 12.4 gm/dL (12.0-15.0); LYMPHOCYTES 5.7 % (24.0-44.0); MCH 30.7 pg (26.0-34.0); MCHC 33.6 g/dL (28.0-37.0); MCV 91.4 fL (80.0-100.0); PLATELET COUNT 307 thou/uL (150-400); POLYS 86.3 % (36.0-66.0); RBC 4.04 mil/uL (4.20-5.00); RDW 13.5 % (10.5-14.5); WBC 14.8 thou/uL (4.0-11.0)
[2017-09-17 17:36] LABS: CALCIUM 9.2 mg/dL (8.5-10.1); CREATININE 0.8 mg/dL (0.6-1.0)
[2017-09-17 17:41] LABS: ALBUMIN 3.8 g/dL (3.4-5.0); DIRECT BILIRUBIN 0.1 mg/dL (<0.1-0.3); TOTAL BILIRUBIN 0.5 mg/dL (<0.1-1.0); TOTAL PROTEIN 7.7 g/dL (6.4-8.2)
[2017-09-17 18:23] LABS: URINE BILIRUBIN NEGATIVE (Negative); URINE BLOOD NEGATIVE (Negative); URINE CLARITY CLEAR; URINE COLOR YELLOW; URINE GLUCOSE-RANDOM* NEGATIVE (Negative); URINE KETONES NEGATIVE (Negative); URINE LEUKOCYTES 1+ (Negative); URINE NITRITE NEGATIVE (Negative); URINE PROTEIN (DIPSTICK) NEGATIVE (Negative); URINE SPECIFIC GRAVITY 1.015 (1.005-1.035); URINE UROBILINOGEN 0.2 E.U./dl (0.2-1.0)
[2017-09-17] MEDS ORDERED: PHENERGAN 25 MG25 M1 PO (18:25)
[2017-09-17] MEDS ORDERED: ZOFRAN ODT4 MG PO (18:25)
[2017-09-17 18:34] LABS: SQUAMOUS 0-3 Few /LPF (0-3); URINE WBC 6-15 Few /HPF (0-5)
[2017-09-17 18:35] LABS: BACTERIA 1-9 Few /HPF (None Seen); CASTS None Seen /LPF (None Seen); CRYSTALS None Seen /LPF (None Seen); URINE RBC None Seen /HPF (0-2); YEAST Present (None Seen)
[2017-09-17] MEDS ORDERED: DIFLUCAN150 MG PO (18:50)
[2017-09-17 19:00] VITALS: BP 119/78
== END 2017-09-17 18:55 | disposition home or self-care (01) ==
LOC: ER 16:05
PROVIDERS: Emergency Medicine
DX: R11.2 Nausea with vomiting, unspecified (principal); D72.829 Elevated white blood cell count, unspecified; N39.0 Urinary tract infection, site not specified

== ENCOUNTER → 2017-09-22 | Outpatient (CLI) | payer OTHER ==
[~2017-09-22] MED LIST changes: +DIFLUCAN150 MG PO; +PHENERGAN 25 MG25 M1 PO; +ZOFRAN ODT4 MG PO
== END ==
LOC: HYPER 09-18 10:06
DX: T81.89XD Other complications of procedures, not elsewhere classified, subsequent encounter (principal); N61.1 Abscess of the breast and nipple; Z72.89 Other problems related to lifestyle; Y83.8 Other surgical procedures as the cause of abnormal reaction of the patient, or of later complication, without mention of misadventure at the time of the procedure

== ENCOUNTER → 2017-09-30 | Outpatient (CLI) | payer OTHER | LOC: HYPER 06:44 | DX: T81.31XD Disruption of external operation (surgical) wound, not elsewhere classified, subsequent encounter (principal); R06.00 Dyspnea, unspecified; Z72.89 Other problems related to lifestyle; Y83.8 Other surgical procedures as the cause of abnormal reaction of the patient, or of later complication, without mention of misadventure at the time of the procedure ==

== ENCOUNTER → 2017-10-07 | Outpatient (CLI) | payer OTHER | LOC: HYPER 08:19 | DX: T81.31XD Disruption of external operation (surgical) wound, not elsewhere classified, subsequent encounter (principal); N61.1 Abscess of the breast and nipple; Z72.89 Other problems related to lifestyle; Y83.8 Other surgical procedures as the cause of abnormal reaction of the patient, or of later complication, without mention of misadventure at the time of the procedure ==

== ENCOUNTER → 2017-10-26 | Outpatient (CLI) | payer OTHER | LOC: HYPER 07:04 | DX: T81.31XD Disruption of external operation (surgical) wound, not elsewhere classified, subsequent encounter (principal); Z72.89 Other problems related to lifestyle; Y83.8 Other surgical procedures as the cause of abnormal reaction of the patient, or of later complication, without mention of misadventure at the time of the procedure ==

== ENCOUNTER → 2017-11-03 | Outpatient (CLI) | payer OTHER | LOC: HYPER 07:12 | DX: T81.31XD Disruption of external operation (surgical) wound, not elsewhere classified, subsequent encounter (principal); N61.1 Abscess of the breast and nipple; Z72.89 Other problems related to lifestyle; Y83.8 Other surgical procedures as the cause of abnormal reaction of the patient, or of later complication, without mention of misadventure at the time of the procedure ==